=== PATIENT | female | born 1950 | race Caucasian/White ===

== ENCOUNTER 2018-12-08 21:55 | Inpatient (IN) ==
--- NOTE | 2018-12-08 22:41 | ED ---
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 Said she just got back from cruise 2 days ago and there was a Noro virus warning. Said her family members who were on the cruise were vomiting and sick. Denies any fever, chest pain, sob, dysuria, hematuria, focal weakness or numbness. Abdominal discomfort only when she is vomiting but not right now. Related Data Home Medications Medication Instructions Recorded Confirmed amlodipine 5 mg PO DAILY 12/08/18 12/08/18 cabergoline 0.5 mg PO 2XWEEK 12/08/18 12/09/18 desmopressin 0.1 mg PO BID 12/08/18 12/08/18 lisinopril 40 mg PO DAILY 12/08/18 12/08/18 mifepristone [Korlym] 300 mg PO DAILY 12/08/18 12/08/18 potassium citrate 20 meq PO BID 12/08/18 12/09/18 cabergoline 1 mg PO 2XWEEK 12/09/18 12/09/18 levothyroxine 125 mcg PO DAILY 12/09/18 12/09/18 pravastatin 80 mg PO DAILY 12/09/18 12/09/18 spironolactone 25 mg PO BID 12/09/18 12/09/18 Allergies Allergy/AdvReac Type Severity Reaction Status Date / Time No Known Allergies Allergy Verified 12/09/18 02:50 Review of Systems ROS: all other systems reviewed are negative [facility] Social History Social History Substance History: No History of Abuse Second Hand Smoke Exposure: No Smoking Status: Never smoker How Often Do You Have a Drink Containing Alcohol: Never Recent Travel in [facility] within the Last 8 Weeks: No Recent Out of Country Travel within the Last 8 Weeks: Yes Exam Narrative Exam Narrative: GENERAL: 68yo F in mild distress. SKIN: Focused skin assessment warm/dry. HEAD: Atraumatic. Normocephalic. EYES: Pupils equal and round. No scleral icterus. No injection or drainage. CARDIOVASCULAR: Regular rate and rhythm. No murmur appreciated. RESPIRATORY: No accessory muscle use. Clear to auscultation. Breath sounds equal bilaterally. GASTROINTESTINAL: Abdomen soft, non-tender, nondistended. No rebound tenderness or guarding. MUSCULOSKELETAL: No obvious deformities. No clubbing. No cyanosis. No edema. NEUROLOGICAL: Awake and alert. No obvious cranial nerve deficits. Motor grossly within normal limits. Normal speech. PSYCHIATRIC: Appropriate mood and affect; insight and judgment normal. Course Initial Documented Vital Signs Temperature 97.2 F L 12/08/18 22:01 Pulse Rate 66 12/08/18 22:01 Respiratory Rate 18 12/08/18 22:01 Blood Pressure 108/56 L 12/08/18 22:01 Pulse Oximetry 97 12/08/18 22:01 Last Documented Vital Signs Temperature 96.9 F L 12/10/18 00:00 Pulse Rate 49 L 12/10/18 00:00 Respiratory Rate 18 12/10/18 00:00 Blood Pressure 95/50 L 12/10/18 00:00 Pulse Oximetry 98 12/10/18 00:00 Medical Decision Making [facility] Narrative Medical decision making narrative: 68yo F here with nausea and vomiting after coming back from cruise 2 days ago. Said there was Norovirus warning on cruise and her family was sick on the cruise. Labs reviewed, no leukocytosis. H/H normal. Pt has hyponatremia at 117, hypokalemia at 2.8 and hypochloremia at 76. This may be secondary to her cushings and vomiting but feel that pt should be admitted and observed for hyponatremia at 117. Creatinine is mildly elevated at 1.30. Pt given zofran and NS IVF and is feeling better. No abdominal tenderness on exam. Feels sore from vomiting. Discussed with Dr. Romero and accepted to his service. Medical Screen Exam Complete: Yes Emergency Medical Condition: Yes Differential Diagnosis Differential Diagnosis: Dehydration vs. Noro virus vs. gastroenteritis vs. electrolyte abnormality Lab Data Result diagrams: 12/08/18 22:58 12/09/18 08:20 Lab Results 12/08/18 12/08/18 12/09/18 Range/Units 22:58 22:58 08:20 CBC w Diff Auto diff final WBC 8.1 (4.0-11.0) th/mm3 RBC 5.13 (4.00-5.30) mil/mm3 Hgb 15.1 (11.6-15.3) gm/dL Hct 45.8 (35.0-46.0) % MCV 89.2 (80.0-100.0) fL MCH 29.4 (27.0-34.0) pg MCHC 32.9 (32.0-36.0) % RDW 13.0 (11.6-17.2) % Plt Count 384 (150-450) th/mm3 MPV 8.2 (7.0-11.0) fL Neut % (Auto) 66.1 (16.0-70.0) % Lymph % (Auto) 21.3 (9.0-44.0) % [place] % (Auto) 11.1 H (0.0-8.0) % Eos % (Auto) 1.1 (0.0-4.0) % Baso % (Auto) 0.4 (0.0-2.0) % Neut # (Auto) 5.4 (1.8-7.7) th/mm3 Lymph # (Auto) 1.7 (1.0-4.8) th/mm3 [place] # (Auto) 0.9 (0.0-0.9) th/mm3 Eos # (Auto) 0.1 (0.0-0.4) th/mm3 Baso # (Auto) 0.0 (0.0-0.2) th/mm3 WBC Differential . Differential Comment . Sodium 117 L* 120 L* (136-145) meq/L Potassium 2.8 L* 3.0 L (3.5-5.1) meq/L Chloride 76 L 82 L (98-107) meq/L Carbon Dioxide 28.5 25.7 (21.0-32.0) meq/L Anion Gap 13 12 (5-15) meq/L BUN 18 14 (7-18) mg/dL Creatinine 1.30 H 0.96 (0.50-1.00) mg/dL Estimated GFR 41 L 58 L (>89) mL/min Random Glucose 93 85 (74-106) mg/dL Calcium 9.0 7.9 L D (8.5-10.1) mg/dL Total Bilirubin 0.9 (0.2-1.0) mg/dL AST 43 H (15-37) U/L ALT 43 (10-53) U/L Alkaline Phosphatase 64 (45-117) U/L Total Protein 7.6 (6.4-8.2) g/dL Albumin 3.8 (3.4-5.0) g/dL Lipase 85 (73-393) U/L Discharge Plan Discharge Disposition Patient Disposition: ED Admit(ED Internal Use Only) Discharge Order Discharge Orders: ED Use Only Admit Order (Routine); Ordered 12/08/18 Ordered By: Marleny De La Rosa Discharge Details Diagnosis: Hyponatremia Physicians Team ED Provider: Marleny De La Rosa Attending Provider: Shakeel Romero Status ED Status: Left Department Discharge Information Discharge Date/Time: 12/09/18 03:07
[2018-12-08] MEDS ORDERED: Sod Chloride 0.9% Inj 1,000 ML IV.SIG SCH (22:45)
[2018-12-08 23:36] LABS: Alanine Aminotransferase 43 U/L (10-53); Albumin 3.8 g/dL (3.4-5.0); Alkaline Phosphatase 64 U/L (45-117); Anion Gap 13 meq/L (5-15); Aspartate Aminotransferase 43 U/L (15-37); Blood Urea Nitrogen 18 mg/dL (7-18); Carbon Dioxide 28.5 meq/L (21.0-32.0); Chloride 76 meq/L (98-107); Glomerular Filtration Rate 41 mL/min (>89); Glucose,Random 93 mg/dL (74-106); Lipase 85 U/L (73-393); Total Protein 7.6 g/dL (6.4-8.2)
[2018-12-08 23:39] LABS: Potassium 2.8 meq/L (3.5-5.1); Sodium 117 meq/L (136-145)
[2018-12-08] MEDS ORDERED: Sod Chloride 0.9% Inj 1,000 ML IV.CONT SCH (23:45)
[2018-12-08 23:48] LABS: Baso % (Auto) 0.4 % (0.0-2.0); Eos # (Auto) 0.1 th/mm3 (0.0-0.4); Eos % (Auto) 1.1 % (0.0-4.0); Hematocrit 45.8 % (35.0-46.0); Hemoglobin 15.1 gm/dL (11.6-15.3); Lymph # (Auto) 1.7 th/mm3 (1.0-4.8); Lymph % (Auto) 21.3 % (9.0-44.0); Mean Corpuscular HGB Conc 32.9 % (32.0-36.0); Mean Corpuscular Hemoglobin 29.4 pg (27.0-34.0); Mean Corpuscular Volume 89.2 fL (80.0-100.0); Mean Platelet Volume 8.2 fL (7.0-11.0); Mono # (Auto) 0.9 th/mm3 (0.0-0.9); Mono % (Auto) 11.1 % (0.0-8.0); Neut # (Auto) 5.4 th/mm3 (1.8-7.7); Neut % (Auto) 66.1 % (16.0-70.0); Platelet Count 384 th/mm3 (150-450); Red Blood Count 5.13 mil/mm3 (4.00-5.30); White Blood Count 8.1 th/mm3 (4.0-11.0)
--- NOTE | 2018-12-09 07:20 | P.HP ---
History of Present Illness Service: [facility] hospitalist serviceDrDebra Romero Primary Care Physician: Rasta Strong Chief Complaint: Recurrent vomiting History of Present Illness: HPI: This is a 68-year-old white female who returned from a 12-day cruise on Friday and on Friday went to see her primary care physician, Dr. Strong, because of swelling of her ankles. He stopped her amlodipine and gave her metolazone 5 mg daily for edema. She started vomiting on Friday afternoon with numerous episodes. She had no diarrhea. Some of the people she went on the cruise with also developed vomiting and they were informed from the cruise line that a Norovirus had occurred during the cruise on several individuals. She continued to vomit off and on yesterday and came to the emergency room last night were she was noted to have a low sodium of 2.8. She mentions she had taken the metolazone again on Friday morning. She has been given Zofran during the early childhood coordinator hours but it has not helped her nausea. She has no abdominal pain other than she gets a little cramping when she has the urge to vomit. 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 with revision right total hip replacement She had 4 pituitary surgeries but they were never able to completely remove the entire tumor Bilateral cataract extraction and lens implants Allergies: None Medications: Lisinopril 40 mg a day Potassium citrate 10 M EQ's 2 tablets twice a day Spironolactone 25 mg twice a day Pravastatin 80 mg daily Levothyroxine 125 mcg daily Fish oil thousand milligrams 3 times a day Desmopressin acetate 0.1 mg half a tablet in the morning and 1 tablet at bedtime Cabergoline 0.5 mg 2 tablets on Friday and 2 tablets on Korlym 300 mg daily She was on amlodipine 5 mg daily but it was stopped 2 days ago because of edema and she was given metolazone 5 mg to take 1 a day for 5 days which has been stopped now due to her low sodium and potassium Family history: Her father in his early 90s of colon cancer. He had also had coronary artery disease with prior bypass Her mother in her early 90s of heart disease Her brother at 72 of liver failure. He also had type 2 diabetes mellitus Social history: She has never smoked. She does not use alcohol She was never and has had no children. She is a retired nurse. - Diagnosis (1) Hyponatremia (2) Persistent recurrent vomiting (3) Hypokalemia (4) Viral gastroenteritis due to [place] virus (5) Hypertension (6) Hyperlipidemia (7) Secondary hypothyroidism (8) Boring disease (9) Hypopituitarism (10) Benign tumor of pituitary gland (11) Diabetes insipidus (12) Osteopenia (13) Diverticulosis of colon (14) Hx of colonic polyps Inpatient Certification: I certify that the inpatient services were ordered in accordance with Medicare regulations governing the order. This includes certification that hospital inpatient services are reasonable and necessary and in the case of services not specified as inpatient-only under 42 CFR 419.22(n), that they are appropriately provided as inpatient services in accordance to with the 2-midnight benchmark under 43 CFR 412.3(e) Review of Systems Review of systems: General: No fever, chills, sweats. HEENT: No sore throat, runny nose, earache. Cardiovascular: No chest pain, heart palpitations, shortness of breath, orthopnea. Pulmonary: No cough, shortness of breath, hemoptysis, pleuritic chest pain Gastrointestinal: No heartburn, indigestion, diarrhea, constipation, melena, rectal bleeding. She has had the recurrent vomiting as mentioned in HPI. : No dysuria, hematuria, urgency, frequency, incontinence. Musculoskeletal: Negative Psychiatry: No significant anxiety or depression Extremities: No edema Dermatology: No rash or itching Neuro: No headache, confusion, motor weakness, numbness or tingling PMFSH - History History Provided By: Patient - Tobacco History Second Hand Smoke Exposure: No Tobacco Use In Past 30 Days: No Smoking Status: Never smoker - Alcohol History How Often Do You Have a Drink Containing Alcohol: Never - Substance Use History Substance History: No History of Abuse - Travel History Recent Travel in the [place] Within the Last 8 Weeks: No Recent Travel Out of the Country Within the Last 8 Weeks: Yes - Immunization History Tetanus Immunization: <5 Years Hx Influenza Vaccine This Season: Yes Medications and Allergies Active Medications: Active Medications Potassium Chloride/Sodium Chloride (Ns + Kcl 40 Meq Inj) 1,000 mls @ 100 mls/ hr IV.CONT .Q10H TAMMI Potassium Chloride (Kcl 20 Meq Premix Inj) 20 meq in 100 mls @ 50 mls/hr IV.SIG Q2H TAMMI Stop: 12/09/18 10:59 Levothyroxine Sodium (Synthroid) 125 mcg PO DAILY TAMMI Non-Formulary Medication (Cabergoline [Cabergoline]) 1 mg PO 2XWEEK TAMMI Non-Formulary Medication (Mifepristone [Korlym]) 300 mg PO DAILY TAMMI Non-Formulary Medication (Potassium Citrate [Potassium Citrate]) 20 meq PO BID TAMMI Non-Formulary Medication (Desmopressin [Desmopressin]) 0.1 mg PO BID TAMMI Pravastatin Sodium (Pravachol) 80 mg PO DAILY TAMMI Promethazine HCl (Phenergan Supp) 25 mg RECTAL Q4H PRN PRN Reason: NAUSEA OR VOMITING Allergies Allergy/AdvReac Type Severity Reaction Status Date / Time No Known Allergies Allergy Verified 12/09/18 02:50 Home Medications Medication Instructions Recorded Confirmed Type amlodipine 5 mg PO DAILY 12/08/18 12/08/18 History cabergoline 0.5 mg PO 2XWEEK 12/08/18 12/09/18 History desmopressin 0.1 mg PO BID 12/08/18 12/08/18 History lisinopril 40 mg PO DAILY 12/08/18 12/08/18 History mifepristone [Korlym] 300 mg PO DAILY 12/08/18 12/08/18 History potassium citrate 20 meq PO BID 12/08/18 12/09/18 History cabergoline 1 mg PO 2XWEEK 12/09/18 12/09/18 History levothyroxine 125 mcg PO DAILY 12/09/18 12/09/18 History pravastatin 80 mg PO DAILY 12/09/18 12/09/18 History spironolactone 25 mg PO BID 12/09/18 12/09/18 History Exam Vital signs: Vital Signs 12/08/18 22:01 12/09/18 00:19 12/09/18 02:52 Temperature 97.2 F L Pulse Rate 66 68 64 Respiratory Rate 18 18 18 Blood Pressure 108/56 L 112/66 110/58 L Pulse Oximetry 97 99 97 Intake & Output 12/08/18 12/08/18 12/09/18 06:59 18:59 06:59 Intake Total 1000 / 1000 Balance 1000 / 1000 Weight 69.5 kg Intake: IV 1000 / 1000 NS Inj 1,000 ML @ 1000 mls/hr 1000 / 1000 IV.SIG BOLUS TAMMI Rx#:[id number] Other: Weight On Admission 69.5 kg Narrative: PE: This is a pleasant white female in no distress. HEENT: Right pupil is chronically larger than her left pupil, EOMs intact, sclera nonicteric, mouth without lesions, TMs intact, nose without lesions Neck: No JVD, neck is supple, no carotid bruit Heart: Regular rate and rhythm without murmurs or gallops Lungs: Clear to auscultation Abdomen: Soft, nontender, no masses, no organomegaly Extremities: No edema, pulses palpated, no calf tenderness Skin: Without lesions or rash Neuro: Alert, oriented, normal motor exam, sensation intact, cranial nerves intact other than right pupil larger than the left pupil Results - Labs CBC & Chem 7: 12/08/18 22:58 12/08/18 22:58 Labs: Laboratory Results - last 24 hr 12/08/18 12/08/18 22:58 22:58 CBC w Diff Auto diff final WBC 8.1 RBC 5.13 Hgb 15.1 Hct 45.8 MCV 89.2 MCH 29.4 MCHC 32.9 RDW 13.0 Plt Count 384 MPV 8.2 Neut % (Auto) 66.1 Lymph % (Auto) 21.3 [place] % (Auto) 11.1 H Eos % (Auto) 1.1 Baso % (Auto) 0.4 Neut # (Auto) 5.4 Lymph # (Auto) 1.7 [place] # (Auto) 0.9 Eos # (Auto) 0.1 Baso # (Auto) 0.0 WBC Differential . Differential Comment . Sodium 117 L* Potassium 2.8 L* Chloride 76 L Carbon Dioxide 28.5 Anion Gap 13 BUN 18 Creatinine 1.30 H Estimated GFR 41 L Random Glucose 93 Calcium 9.0 Total Bilirubin 0.9 AST 43 H ALT 43 Alkaline Phosphatase 64 Total Protein 7.6 Albumin 3.8 Lipase 85 Caprini VTE Risk Assessment Caprini VTE Risk Assessment: Moderate/High Risk (score >= 2) Caprini Risk Assessment Model: Point Value = 1 Point Value = 2 Point Value = 3 Point Value = 5 Age 41-60 Minor surgery BMI > 25 kg/m2 Swollen legs Varicose veins or History of unexplained or recurrent spontaneous Oral contraceptives or hormone replacement Sepsis (< 1 month) Serious lung disease, including pneumonia (< 1 month) Abnormal pulmonary function Acute myocardial infarction Congestive heart failure (< 1 month) History of inflammatory bowel disease Medical patient at bed rest Age 61-74 Arthroscopic surgery Major open surgery (> 45 min) Laparoscopic surgery (> 45 min) Malignancy Confined to bed (> 72 hours) Immobilizing plaster cast Central venous access Age >= 75 History of VTE Family history of VTE Factor V Leiden Prothrombin [id number] Lupus anticoagulant Anticardiolipin antibodies Elevated serum homocysteine Heparin-induced thrombocytopenia Other congenital or acquired thrombophilia Stroke (< 1 month) Elective arthroplasty Hip, pelvis, or leg fracture Acute spinal cord injury (< 1 month) Prophylaxis Regimen: Total Risk Factor Score Risk Level Prophylaxis Regimen 0-1 Low Early ambulation 2 Moderate Order ONE of the following: *Sequential Compression Device (SCD) *Heparin 5000 units SQ BID 3-4 Higher Order ONE of the following medications: *Heparin 5000 units SQ TID *Enoxaparin/Lovenox 40 mg SQ daily (WT < 150 kg, CrCl > 30 mL/min) *Enoxaparin/Lovenox 30 mg SQ daily (WT < 150 kg, CrCl > 10-29 mL/min) *Enoxaparin/Lovenox 30 mg SQ BID (WT < 150 kg, CrCl > 30 mL/min) AND/OR *Sequential Compression Device (SCD) 5 or more Highest Order ONE of the following medications: *Heparin 5000 units SQ TID (Preferred with Epidurals) *Enoxaparin/Lovenox 40 mg SQ daily (WT < 150 kg, CrCl > 30 mL/min) *Enoxaparin/Lovenox 30 mg SQ daily (WT < 150 kg, CrCl > 10-29 mL/min) *Enoxaparin/Lovenox 30 mg SQ BID (WT < 150 kg, CrCl > 30 mL/min) AND *Sequential Compression Device (SCD) SCD's Assessment and Plan - Assessment (1) Hyponatremia Code(s): E87.1 - Hypo-osmolality and hyponatremia Status: Acute (2) Persistent recurrent vomiting Code(s): R11.10 - Vomiting, unspecified Status: Acute (3) Hypokalemia Code(s): E87.6 - Hypokalemia Status: Acute (4) Viral gastroenteritis due to [place] virus Code(s): A08.11 - Acute gastroenteropathy due to [place] agent Status: Acute (5) Hypertension Code(s): I10 - Essential (primary) hypertension Status: Acute (6) Hyperlipidemia Code(s): E78.5 - Hyperlipidemia, unspecified Status: Acute (7) Secondary hypothyroidism Code(s): E03.8 - Other specified hypothyroidism Status: Acute (8) 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 Status: Acute (9) Hypopituitarism Code(s): E23.0 - Hypopituitarism Status: Acute (10) Benign tumor of pituitary gland Code(s): D35.2 - Benign neoplasm of pituitary gland Status: Acute (11) Diabetes insipidus Code(s): E23.2 - Diabetes insipidus Status: Acute (12) Osteopenia Code(s): M85.80 - Other specified disorders of bone density and structure, unspecified site Status: Acute (13) Diverticulosis of colon Code(s): K57.30 - Diverticulosis of large intestine without perforation or abscess without bleeding Status: Acute (14) Hx of colonic polyps Code(s): Z86.010 - Personal history of colonic polyps Status: Acute - Plan Plan: She has been put on IV normal saline with with potassium added. SCDs will be used for DVT prophylaxis. I will hold her lisinopril since her sodium is low and her blood pressure is not elevated. Her spironolactone and metolazone that she had been taking for 2 days has been stopped as well. She has not responded to Zofran for nausea so I will give her Phenergan suppositories. Her electrolytes will be monitored until a become normal. Code Status: Full code.
[2018-12-09] MEDS: Promethazine 25 MG Supp RECTAL PRN ×2 (09:49→14:30)
[2018-12-09 10:41] LABS: Calcium 7.9 mg/dL (8.5-10.1); Carbon Dioxide 25.7 meq/L (21.0-32.0)
[2018-12-09] MEDS: Potassium Chlor 20 mEq Premix 20 MEQ/100 ML PIGGYBACK IV.SIG SCH ×2 (12:34→17:57)
[2018-12-09] MEDS: [UNRECOGNIZED DRUG - OTHER] PO SCH (12:41)
[2018-12-09] MEDS ORDERED: [UNRECOGNIZED DRUG - OTHER] PO SCH (23:45)
[2018-12-10] MEDS: [UNRECOGNIZED DRUG - OTHER] PO SCH ×2 (00:01→09:53)
[2018-12-10] MEDS ORDERED: Levothyroxine 125 MCG Tablet PO SCH (06:00)
[2018-12-10 07:17] LABS: Calcium 7.5 mg/dL (8.5-10.1); Carbon Dioxide 23.2 meq/L (21.0-32.0); Potassium 4.1 meq/L (3.5-5.1)
[2018-12-10 08:45] VITALS: BP 118/68; PULSE 51; RESP 16; TEMP 96.5; O2SAT 95
[2018-12-10] MEDS ORDERED: CABERGOLINE 1 MG PO SCH (09:00)
--- NOTE | 2018-12-10 09:08 | P.PN ---
Subjective Interval history: She states she feels much better and has had no vomiting or nausea since yesterday. She has much more energy also.She tolerated a liquid diet yesterday. Physical Exam Vital signs: Vital Signs 12/09/18 12:00 12/09/18 12:05 12/09/18 16:00 Temperature 98.7 F 97.9 F Pulse Rate 54 L 58 L 51 L Respiratory Rate 18 18 Blood Pressure 116/56 L 107/64 Pulse Oximetry 96 96 12/09/18 20:00 12/09/18 22:50 12/10/18 00:00 Temperature 98.1 F 96.9 F L Pulse Rate 54 L 54 L 49 L Respiratory Rate 18 18 Blood Pressure 90/50 L 95/50 L Pulse Oximetry 93 L 98 12/10/18 04:00 12/10/18 08:44 Temperature 96.5 F L Pulse Rate 48 L 51 L Respiratory Rate 16 Blood Pressure 118/68 Pulse Oximetry 95 Intake & Output 12/09/18 12/10/18 12/10/18 18:59 06:59 18:59 Intake Total 2099 1805 / 1805 Balance 2099 1805 / 1805 Weight 69.5 kg Intake: IV 2099 1100 / 1100 NS + KCl 40 mEq Inj 1,000 ML @ 1000 / 1000 1000 / 1000 100 mls/hr IV.CONT .Q10H TAMMI Rx #:[id number] NS Inj 1,000 ML @ 100 mls/hr IV 1000 / 1000 .CONT .Q10H TAMMI Rx#:[id number] KCl 20 mEq Premix Inj 20 meq In 100 / 100 100 ml @ 50 mls/hr IV.SIG Q2H TAMMI Rx#:[id number] Oral 705 / 705 Other: # Voids 3 Date of Last Bowel Movement 12/07/18 12/07/18 # Bowel Movements 1 Narrative: PE: This is a pleasant white female in no distress. HEENT: Right pupil is chronically larger than her left pupil, EOMs intact, sclera nonicteric, mouth without lesions, TMs intact, nose without lesions Neck: No JVD, neck is supple, no carotid bruit Heart: Regular rate and rhythm without murmurs or gallops Lungs: Clear to auscultation Abdomen: Soft, nontender, no masses, no organomegaly Extremities: No edema, pulses palpated, no calf tenderness Skin: Without lesions or rash Neuro: Alert, oriented, normal motor exam, sensation intact, cranial nerves intact other than right pupil larger than the left pupil Results - Labs CBC & Chem 7: 12/08/18 22:58 12/10/18 05:30 Laboratory Results - last 24 hr 12/09/18 12/10/18 08:20 05:30 Sodium 120 L* 132 L D Potassium 3.0 L 4.1 D Chloride 82 L 102 D Carbon Dioxide 25.7 23.2 Anion Gap 12 7 BUN 14 12 Creatinine 0.96 0.93 Estimated GFR 58 L 60 L Random Glucose 85 77 Calcium 7.9 L D 7.5 L Laboratory Results - last 48 hr 12/08/18 12/08/18 12/09/18 22:58 22:58 08:20 CBC w Diff Auto diff final WBC 8.1 RBC 5.13 Hgb 15.1 Hct 45.8 MCV 89.2 MCH 29.4 MCHC 32.9 RDW 13.0 Plt Count 384 MPV 8.2 Neut % (Auto) 66.1 Lymph % (Auto) 21.3 [place] % (Auto) 11.1 H Eos % (Auto) 1.1 Baso % (Auto) 0.4 Neut # (Auto) 5.4 Lymph # (Auto) 1.7 [place] # (Auto) 0.9 Eos # (Auto) 0.1 Baso # (Auto) 0.0 WBC Differential . Differential Comment . Sodium 117 L* 120 L* Potassium 2.8 L* 3.0 L Chloride 76 L 82 L Carbon Dioxide 28.5 25.7 Anion Gap 13 12 BUN 18 14 Creatinine 1.30 H 0.96 Estimated GFR 41 L 58 L Random Glucose 93 85 Calcium 9.0 7.9 L D Total Bilirubin 0.9 AST 43 H ALT 43 Alkaline Phosphatase 64 Total Protein 7.6 Albumin 3.8 Lipase 85 12/10/18 05:30 CBC w Diff WBC RBC Hgb Hct MCV MCH MCHC RDW Plt Count MPV Neut % (Auto) Lymph % (Auto) [place] % (Auto) Eos % (Auto) Baso % (Auto) Neut # (Auto) Lymph # (Auto) [place] # (Auto) Eos # (Auto) Baso # (Auto) WBC Differential Differential Comment Sodium 132 L D Potassium 4.1 D Chloride 102 D Carbon Dioxide 23.2 Anion Gap 7 BUN 12 Creatinine 0.93 Estimated GFR 60 L Random Glucose 77 Calcium 7.5 L Total Bilirubin AST ALT Alkaline Phosphatase Total Protein Albumin Lipase Assessment and Plan - Assessment (1) Hyponatremia Code(s): E87.1 - Hypo-osmolality and hyponatremia Status: Acute Plan: Her hyponatremia has improved to 132 and potassium is good. (2) Persistent recurrent vomiting Code(s): R11.10 - Vomiting, unspecified Status: Acute Plan: Her vomiting has resolved and she has no further nausea. (3) Hypokalemia Code(s): E87.6 - Hypokalemia Status: Acute Plan: Her potassium is now normal. 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 Status: Chronic (9) Hypopituitarism Code(s): E23.0 - Hypopituitarism Status: Chronic (10) Benign tumor of pituitary gland Code(s): D35.2 - Benign neoplasm of pituitary gland Status: Chronic (11) Diabetes insipidus Code(s): E23.2 - Diabetes insipidus Status: Chronic (12) Osteopenia Code(s): M85.80 - Other specified disorders of bone density and structure, unspecified site Status: Chronic (13) Diverticulosis of colon Code(s): K57.30 - Diverticulosis of large intestine without perforation or abscess without bleeding Status: Chronic (14) Hx of colonic polyps Code(s): Z86.010 - Personal history of colonic polyps Status: Chronic - Plan Plan: Her electrolyte imbalance has essentially resolved and she feels much better and feels like she could go home. I will discharge her to followup with her PCP within one week. I told her that I will hold off on continuing her Lisinopril at home because her BP has been good off her BP medications in the hospital. 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 She was told to not take Metolazone anymore since it likely caused her low sodium and potassium. She was on Spironolactone for edema also but since her Amlodipine was stopped I told her she will be less likely to get edema of the ankle. I told her to decrease her potassium citrate to 10meq twice a day until she sees her PCP. She should repeat a BMP in about 5 days. She will continue her other home medications.
== END 2018-12-10 10:34 | disposition home or self-care (01) | DRG 392 ==
LOC: PHED 21:55 → PHEDA 23:57 → PH3 12-09 03:08
PROVIDERS: ADMIT Family Medicine; ATTEND Family Medicine
CPT/HCPCS: 80048; 80053; 83690; 85025; 90761; 90774; 96361; 96374; 99285; C8952; J2405; J3480; J7030